=== PATIENT | female | born 1940 | race Caucasian/White ===

== ENCOUNTER 2016-09-20 04:22 | Inpatient (IN) ==
[2016-09-20] MEDS ORDERED: Acetaminophen 325 MG TABLET PO PRN (06:22)
[2016-09-20] MEDS ORDERED: Ondansetron 4 MG/2 ML VIAL IVP PRN (06:22)
[2016-09-20] MEDS ORDERED: Naloxone 0.4 MG/ML INJ IVP PRN (06:22)
[2016-09-20] MEDS ORDERED: Dextrose Gel 15 GM PO PRN ×2 (06:25)
[2016-09-20] MEDS ORDERED: *HR* Dextrose 50 % in Water (Syg) 50 ML SYRINGE IVP PRN (06:25)
[2016-09-20] MEDS ORDERED: D5% in Water 1,000 ML IVC PRN (06:25)
[2016-09-20] MEDS ORDERED: Ipratropium/Albuterol Neb 3 ML IH PRN (06:29)
--- NOTE | 2016-09-20 06:32 | Orthopedic Consult Note ---
Date of Encounter: 09/20/16 Time of Encounter: 06:31 History of Present Illness HPI: Ms. Magana is a 75 year old female Previous ambulator fell on Monday unable to ambulate presents to play tear with the fracture. Physical exam Decreased range of motion left lower extremity Neurovascular intact X-rays intertrochanteric left hip fracture Plan when medically cleared reduction intramedullary nail fixation. Past Med Surg Social Fam HX - Past Medical History Medical history: arthritis, cancer, COPD, dementia, GERD, other Psychiatric history: anxiety - Past Surgical History Surgical History: colectomy, colostomy, orthopedic, other - Social History Smoking Status: Former smoker Smokeless Tobacco Status: No Alcohol use: none Drug use: none Medications and Allergies Divalproex (12 HR) [Depakote (12 HR)] 250 mg PO BID 11/17/14 [History] Docusate [Colace] 100 mg PO BID 11/17/14 [History] Primidone [Mysoline] 50 mg PO BID 11/17/14 [History] Tiotropium [Spiriva] 1 puff IH 0800 11/17/14 [History] Ondansetron ODT [Zofran ODT] 4 mg SL TID PRN 11/18/14 [History] Acetaminophen [Tylenol] 650 mg PO Q4HR PRN 02/05/16 [History] Cranberry Fruit Concentrate [Cranberry] 450 mg PO BID 02/05/16 [History] Divalproex Sodium [Depakote] 125 mg PO HS 02/05/16 [History] Magnesium Hydroxide [Milk of Magnesia] 400 mg PO HS PRN 02/05/16 [History] risperiDONE [Risperidone] 0.5 mg PO DAILY 02/05/16 [History] Lactobacillus Acidophilus [Acidophilus] 1 each PO BID 3 Days 04/25/16 [Rx] ALPRAZolam [Xanax 0.5 MG Tablet] 0.5 mg PO Q6H PRN 09/17/16 [History] ALPRAZolam [Xanax 1 MG Tablet] 1 mg PO HS 09/17/16 [History] Benztropine [Cogentin] 0.5 mg PO HS 09/17/16 [History] Bifidobacterium Infantis [Align] 4 mg PO BID 09/17/16 [History] Fluvoxamine Maleate 50 mg PO DAILY 09/17/16 [History] HYDROcodone/Acet 5/325 mg [[place] 5-325 mg] 1 tab PO DAILY 09/17/16 [History] Psyllium Husk [Metamucil] 0.52 gm PO DAILY 09/17/16 [History] Allergies codeine Allergy (Unknown, Verified 09/17/16 12:55) unknown All Systems Reviewed: A 10-system review of systems was performed and is negative for pertinent findings except as documented above in the HPI. Physical Exam - Constitutional Vitals: Temp Pulse Resp BP Pulse Ox 98.5 F 111 15 115/73 93 09/20/16 05:54 09/20/16 05:54 09/20/16 05:54 09/20/16 05:54 09/20/16 05:54 Results - Labs Labs: All other labs normal.
[2016-09-20] MEDS ORDERED: *HR* HYDROcodone/Acet 5/325 mg TABLET PO PRN (06:41)
[2016-09-20 07:06] LABS: Basophils % 0.3 %; Hemoglobin 9.2 g/dL (11.5-15.4); Immature Granulocytes % 0.3 % (0-4); Lymphocytes # 0.5 K/mcL (0.6-4.6); Lymphocytes % 7.1 %; Mean Corpuscular HGB Conc 31.7 g/dL (31.6-35.5); Mean Corpuscular Hemoglobin 31.3 pg (28.0-33.3); Mean Corpuscular Volume 98.6 fL (83.0-100.0); Mean Platelet Volume 9.9 fL (9.4-12.4); Monocytes # 1.3 K/mcL (0.0-1.3); Monocytes % 16.7 %; Neutrophils # 5.7 K/mcL (1.6-8.9); Platelet Count 107 K/mcL (140-400); Red Blood Count 2.94 M/mcL (3.82-4.97); Red Cell Distribution Width 13.8 % (11.5-14.5); Segmented Neutrophils % 75.6 %
[2016-09-20 07:20] LABS: Alanine Aminotransferase 10 Units/L (0-55); Alkaline Phosphatase 61 Units/L (38-126); Aspartate Amino Transferase 17 Units/L (5-34); BUN/Creatinine Ratio 17 (6-26); Bilirubin,Total 0.3 mg/dL (0.2-1.2); Blood Urea Nitrogen 9 mg/dL (7-20); Calcium 8.9 mg/dL (8.6-10.8); Chloride 85 mEq/L (98-109); Globulin 3.1 g/dL (2.4-3.5); Glucose 99 mg/dL (70-99); Osmolality,Calculated 283 (280-300); Potassium 4.1 mEq/L (3.5-4.5); Sodium 137 mEq/L (136-145); Total Protein 6.1 g/dL (6.0-8.3); eGFR For African Americans > 60 (> 60); eGFR For Non-African Americans > 60 (> 60)
[2016-09-20 07:24] LABS: INR 1.1; Prothrombin Time 11.9 Seconds (9.4-12.1)
[2016-09-20 07:40] LABS: Carbon Dioxide 46 mEq/L (19-29)
--- NOTE | 2016-09-20 08:09 | Internal Med History&Physical ---
Date of Encounter: 09/20/16 Time of Encounter: 08:07 Assessment and Plan (1) Hip fracture, intertrochanteric Current visit: Yes Status: Acute L hip fracture orthopedics review noted Per EMR, patient was a hospice patient and revoked her status at time of presentation in the ER patient with very poor quality of life, I am unsure her quality of life will be impacted positively by surgery If patient's POA agrees with surgeon, may go for surgery as discussed with surgeon and family Patient with no significant cardiac history EKG with sinus tachycardia, no EKG changes There is no further need for any cardiac work up at this time, poor functional capacity at baseline, MET <4, but testing will not influence outcome of surgery She is moderate risk of pulmonary complications due her chronic hypercapnea with compensatory metabolic alkalosis Pain control DVT prophylaxis Rest of management per surgery Qualifiers: Encounter type: initial encounter Fracture type: closed Fracture alignment: nondisplaced Laterality: left Qualified Code(s): S72.145A - Nondisplaced intertrochanteric fracture of left femur, initial encounter for closed fracture (2) UTI (urinary tract infection) Current visit: Yes Status: Acute Urinalysis with positive leukocyte esterase and many bacteria Patient has been started on ceftriaxone Follow Urine culture Qualifiers: Urinary tract infection type: site unspecified Hematuria presence: with hematuria Qualified Code(s): N39.0 - Urinary tract infection, site not specified; R31.9 - Hematuria, unspecified (3) Anemia Current visit: Yes Status: Chronic Chronic. Hemoglobin at baseline. Send type and screen, for repeat hemoglobin after surgery. Qualifiers: Anemia type: unspecified type Qualified Code(s): D64.9 - Anemia, unspecified (4) Colon cancer Current visit: No Status: Chronic Patient with history of colon cancer status post hemicolectomy and colostomy. Continue colostomy care. Qualifiers: Colon location: unspecified part of colon Qualified Code(s): C18.9 - Malignant neoplasm of colon, unspecified (5) Chronic respiratory failure with hypercapnia Current visit: Yes Status: Chronic prior history of chronic respiratory failure, multiple admissions for CO2 narcosis. Patient's respiratory status and his admission since he had baseline. However she has chronic metabolic alkalosis which indicates that she is a chronic retainer. BiPAP at bedside. Patient may require BiPAP immediate postop period (6) Dementia Current visit: Yes Status: Chronic Patient with history of dementia, chronic malnutrition and underweight with BMI of 16. Patient has poor functional capacity/quality of life at baseline, High risk for delirium Ensure orientation and re-orientation Allow family at the bedside as often as possible Continue home antipsychotics Qualifiers: Dementia type: unspecified type Dementia behavioral disturbance: without behavioral disturbance Qualified Code(s): F03.90 - Unspecified dementia without behavioral disturbance Internal Medicine - H&P: HPI Chief complaint: Fall Admitted From: Long-term Nursing Facility Plans for Post Hospital Care: Transfer Long Term Facility History of present illness: Ms. Magana is a 75 year old female with dementia, resident of SNF, chronically debilitated but able to ambulate on walker No family at bedside at time of review information mainly obtained from the chart Patient seen and evaluated at bedside, and upon asking patient why she is in the hospital, patient reports I have been having medication issues She is oriented to person only, and does not remember a history of fall Per chart review, patient had a fall 2 days prior to presentation and history of documented fever 100.9 at SNF, frequency and urgency reported by family members Work up in the ER revealed evidence of UTI and Left intertrochanteric fracture Orthopedics was consulted from referral hospital and recommended admission for surgery Per EMR, patient was known hospice but now full code Patient is not in any form of distress at time of review, tachycardic and tremulous from head to toe, patient reports this is chronic and exacerbated by extremes of emotion or stress. She is cachectic, chest is clear, abdomen with R sided colostomy, no edema. Labs reviewed: chronic anemia, Hb at baseline, metabolic alkalosis, chronic , possibly compensatory to respiratory acidosis/ hypercapnea Past Med Surg Social Fam HX - Past Medical History Medical history: arthritis, cancer, COPD, dementia, GERD, other Psychiatric history: anxiety, depression - Past Surgical History Surgical History: colostomy, orthopedic, other - Social History Smoking Status: Former smoker Smokeless Tobacco Status: No Alcohol use: none Drug use: none - Family History Father Name: FRANCIS CARRILLO Living Status: Age at : 68 Hx Family Cancer: Yes (COLON CA) Mother Name: DANI ISAAC Living Status: Hx Family Cancer: Yes (BREAT CA) Internal Medicine - H&P: Meds Divalproex (12 HR) [Depakote (12 HR)] 250 mg PO BID 11/17/14 [History] Docusate [Colace] 100 mg PO BID 11/17/14 [History] Primidone [Mysoline] 50 mg PO BID 11/17/14 [History] Tiotropium [Spiriva] 1 puff IH 0800 11/17/14 [History] Ondansetron ODT [Zofran ODT] 4 mg SL TID PRN 11/18/14 [History] Acetaminophen [Tylenol] 650 mg PO Q4HR PRN 02/05/16 [History] Cranberry Fruit Concentrate [Cranberry] 450 mg PO BID 02/05/16 [History] Divalproex Sodium [Depakote] 125 mg PO HS 02/05/16 [History] Magnesium Hydroxide [Milk of Magnesia] 400 mg PO HS PRN 02/05/16 [History] risperiDONE [Risperidone] 0.5 mg PO DAILY 02/05/16 [History] Lactobacillus Acidophilus [Acidophilus] 1 each PO BID 3 Days 04/25/16 [Rx] ALPRAZolam [Xanax 0.5 MG Tablet] 0.5 mg PO Q6H PRN 09/17/16 [History] ALPRAZolam [Xanax 1 MG Tablet] 1 mg PO HS 09/17/16 [History] Benztropine [Cogentin] 0.5 mg PO HS 09/17/16 [History] Bifidobacterium Infantis [Align] 4 mg PO BID 09/17/16 [History] Fluvoxamine Maleate 50 mg PO DAILY 09/17/16 [History] HYDROcodone/Acet 5/325 mg [[place] 5-325 mg] 1 tab PO DAILY 09/17/16 [History] Psyllium Husk [Metamucil] 0.52 gm PO DAILY 09/17/16 [History] Allergies codeine Allergy (Unknown, Verified 09/17/16 12:55) unknown ROS unobtainable: due to mental status All Systems PM: A 10-system review of systems was performed and is negative for pertinent findings except as documented above in the HPI. - Constitutional Vitals: Temp Pulse Resp BP Pulse Ox 98.5 F 111 15 115/73 93 09/20/16 05:54 09/20/16 05:54 09/20/16 05:54 09/20/16 05:54 09/20/16 05:54 General appearance: Present: cachectic, A&O X 2, no acute distress (generalized tremors including head bobbing) - Head Head exam: Present: atraumatic - Eye Eye exam: Present: PERRL, conjuntiva pink, sclera anicteric - ENT ENT exam: Present: mucous membranes dry - Neck Neck exam general surgery: Present: normal inspection - Respiratory Respiratory exam: Present: CTAB. Absent: rales, rhonchi, wheezes - Cardiovascular Cardiovascular exam: Present: RRR, +S1, +S2, tachycardia. Absent: diastolic murmur, gallop, rubs, systolic murmur - GI/Abdominal Additional comments: Soft, not tender, R colostomy with colostomy bag slightly filled with fecal material, BS present in all quadrants - Additional comments: [place] cath patent , draining cloudy urine. - Extremities Exam Extremities exam: Present: warm, radial pulses palpable and symetrical. Absent : calf tenderness, cyanotic, pedal edema Additional comments: Generalized wasting noted Left lower leg externally rotated and shorter than the right - Neurological Exam Neurological exam: Present: alert, CN II-XII intact, no focal deficits. Absent : oriented X3, pronater drift, facial droop, speech deficit - Skin Skin exam: Present: dry, intact Internal Med - H&P Results - Labs CBC & Chem 7: 09/20/16 06:57 09/20/16 06:57 Labs: Short CBC 09/20/16 Range/Units 06:57 WBC 7.6 (4.3-11.1) K/mcL Hgb 9.2 L (11.5-15.4) g/dL Hct 29.0 L (35.3-44.9) % Plt Count 107 L (140-400) K/mcL Neutrophils # 5.7 (1.6-8.9) K/mcL BMP 09/20/16 06:57 Sodium 137 Potassium 4.1 Chloride 85 L Carbon Dioxide 46 H* BUN 9 Creatinine 0.52 L Glucose 99 Calcium 8.9 Liver Function 09/20/16 Range/Units 06:57 Total Bilirubin 0.3 (0.2-1.2) mg/dL AST 17 (5-34) Units/L ALT 10 (0-55) Units/L Alkaline Phosphatase 61 (38-126) Units/L Albumin 3.0 L (3.5-5.0) g/dL
[2016-09-20 08:17] LABS: Bilirubin,Urine Negative (Negative); Blood,Urine Moderate (Negative); Clarity,Urine Turbid (Clear); Color,Urine Yellow (Yellow); Glucose,Urine (UA) Normal (Normal); Ketones,Urine Negative (Negative); Leukocyte Esterase,Urine Large (Negative); Nitrite,Urine Negative (Negative); PH,Urine 7.5 pH Units (5.0-8.0); Protein,Urine 30 mg/dL (Neg-Trace); Specific Gravity,Urine 1.012 (1.010-1.025); Urobilinogen,Urine Normal (Normal)
[2016-09-20 08:19] LABS: Bacteria,Urine Many per hpf (None-Few); Squamous Epithelial Cell,Urine Many per lpf (None-Few); WBC,Urine TNTC per hpf (0-3)
[2016-09-20 08:31] LABS: RBC,Urine 15-30 per hpf (0-3)
[2016-09-20] MEDS ORDERED: *HR* HYDROcodone/Acet 5/325 mg TABLET PO SCH (09:00)
[2016-09-20] MEDS ORDERED: risperiDONE 0.25 MG TABLET PO SCH (09:00)
[2016-09-20] MEDS: Divalproex (12 HR) 250 MG TABLET PO SCH ×2 (09:27→19:43)
[2016-09-20] MEDS: FLUVOXAMINE MALEATE 50 MG PO SCH (09:28)
[2016-09-20] MEDS: (Bifidobacterium Infantis [Align] 4 MG) PO SCH ×2 (09:28→19:45)
[2016-09-20] MEDS: 0.9 % Sodium Chloride 1,000 ML IVC SCH (09:28)
[2016-09-20] MEDS: Famotidine 20 MG TABLET PO SCH ×2 (09:28→19:42)
[2016-09-20] MEDS: Tiotropium 18 MCG inhalation IH SCH (10:43)
[2016-09-20 11:15] LABS: ABG Base Excess 25.4 mEq/L (-2.0 to 3.0); ABG HCO3 53.9 mEQ/L (21-27); ABG Oxygen Saturation 91 % (95-98); ABG PO2 60 mmHg (85-104); ABG TCO2 56.6 mEq/L (20-26)
[2016-09-20 11:20] LABS: ABG PCO2 87 mmHg (35-45); Blood Gas Liter Flow 2 L/MIN
[2016-09-20] MEDS: Insulin LISPRO 300 UNITS/3 ML VIAL SQ SCH ×2 (12:25→17:37)
[2016-09-20] MEDS ORDERED: Loratadine 10 MG TABLET PO PRN (17:06)
[2016-09-20] MEDS: ALPRAZolam 0.5 MG TABLET PO PRN (17:35)
[2016-09-20] MEDS: *HR* Heparin 5,000 UNIT/ML VIAL SQ SCH (17:35)
--- NOTE | 2016-09-20 18:20 | Anesthesia Evaluation PreOp ---
Date of Encounter: 09/20/16 - Past History Planned Operation: Left Hip TFN Cardiac History: Denies any Significant Hx Pulmonary History: COPD, Other (chronic respiratory failure with hypercapnea) DRYWALLER History: Other (dementia) Other Medical History: GERD, Other (H/O colon CA S/P colectomy/colostomy) Anesthesia History: Past Anesthesia Alcohol Use: none Drug use: none Medications and Allergies Divalproex (12 HR) [Depakote (12 HR)] 250 mg PO BID 11/17/14 [History] Docusate [Colace] 100 mg PO BID 11/17/14 [History] Primidone [Mysoline] 50 mg PO BID 11/17/14 [History] Tiotropium [Spiriva] 1 puff IH 0800 11/17/14 [History] Ondansetron ODT [Zofran ODT] 4 mg SL QID PRN 11/18/14 [History] Acetaminophen [Tylenol] 650 mg PO Q4HR PRN 02/05/16 [History] Cranberry Fruit Concentrate [Cranberry] 450 mg PO BID 02/05/16 [History] Divalproex Sodium [Depakote] 125 mg PO HS 02/05/16 [History] Magnesium Hydroxide [Milk of Magnesia] 400 mg PO HS PRN 02/05/16 [History] risperiDONE [Risperidone] 1 mg PO BID 02/05/16 [History] ALPRAZolam [Xanax 0.5 MG Tablet] 0.5 mg PO TID PRN 09/17/16 [History] ALPRAZolam [Xanax 1 MG Tablet] 1 mg PO HS 09/17/16 [History] Benztropine [Cogentin] 0.5 mg PO HS 09/17/16 [History] Bifidobacterium Infantis [Align] 4 mg PO BID 09/17/16 [History] Fluvoxamine Maleate 50 mg PO DAILY 09/17/16 [History] HYDROcodone/Acet 5/325 mg [[place] 5-325 mg] 1 tab PO HS 09/17/16 [History] Psyllium Husk [Metamucil] 0.52 gm PO DAILY 09/17/16 [History] Ipratropium/Albuterol Neb [Duoneb] 3 ml IH Q4HR PRN 09/20/16 [History] Levocetirizine Dihydrochloride 5 mg PO DAILY PRN 09/20/16 [History] Omeprazole [PriLOSEC] 20 mg PO DAILY 09/20/16 [History] Tamsulosin [Flomax] 0.4 mg PO DAILY 09/20/16 [History] Allergies codeine Allergy (Unknown, Verified 09/17/16 12:55) unknown - Meds/Allergy Pre-op Review Medications Reviewed: Yes Allergies Reviewed: Yes Beta Blockers on Current Med List: No Anesthesia Results - Labs 09/20/16 06:57 09/20/16 06:57 - Imaging EKG: report reviewed (09/17/2016 ST) Additional studies: 12/19/2009 Stress CONCLUSIONS: ==> Indeterminate ECG for ischemia due to abnormal baseline ECG. ==> The patient demonstrated normal blood pressure response to pharmacologic infusion. ==> The ECG during the exam demonstrated baseline ECG abnormalities. ==> The gated ejection fraction was calculated at 79% ==> The nuclear report will be dictated in a separate report.The nuclear exam reveals no evidence of stress-induced ischemia. Anesthesia Exam Vital Signs/O2 Sat, Most Current Temp Pulse Resp BP Pulse Ox 98.9 F 100 16 112/66 93 09/20/16 15:03 09/20/16 15:03 09/20/16 15:03 09/20/16 15:03 09/20/16 15:03 Height: 5'2''/1.57 m Weight: 92 lbs/41.9 kg
[2016-09-20] MEDS: Divalproex Sodium 125 MG CAPSULE PO SCH (19:43)
[2016-09-20] MEDS: risperiDONE 0.25 MG TABLET PO SCH (19:44)
[2016-09-20] MEDS: ALPRAZolam 1 MG TABLET PO SCH (19:44)
[2016-09-20] MEDS: Primidone 50 MG TABLET PO SCH (19:44)
[2016-09-21] MEDS: Insulin LISPRO 300 UNITS/3 ML VIAL SQ SCH ×5 (00:18→17:43)
[2016-09-21 03:36] LABS: Basophils % 0.2 %; Eosinophils % 0.2 %
[2016-09-21 03:38] LABS: Hemoglobin 9.1 g/dL (11.5-15.4); Immature Granulocytes % 0.2 % (0-4); Immature Platelets 7.2 % (1.1-6.1); Lymphocytes # 0.4 K/mcL (0.6-4.6); Lymphocytes % 6.3 %; Mean Corpuscular HGB Conc 31.4 g/dL (31.6-35.5); Mean Corpuscular Hemoglobin 30.8 pg (28.0-33.3); Mean Corpuscular Volume 98.3 fL (83.0-100.0); Mean Platelet Volume 10.7 fL (9.4-12.4); Monocytes # 0.9 K/mcL (0.0-1.3); Monocytes % 14.6 %; Red Blood Count 2.95 M/mcL (3.82-4.97); Red Cell Distribution Width 13.6 % (11.5-14.5); Segmented Neutrophils % 78.5 %
[2016-09-21 03:51] LABS: BUN/Creatinine Ratio 19 (6-26); Blood Urea Nitrogen 8 mg/dL (7-20); Calcium 8.4 mg/dL (8.6-10.8); Carbon Dioxide 35 mEq/L (19-29); Chloride 90 mEq/L (98-109); Glucose 109 mg/dL (70-99); Osmolality,Calculated 275 (280-300); Sodium 133 mEq/L (136-145); eGFR For African Americans > 60 (> 60); eGFR For Non-African Americans > 60 (> 60)
[2016-09-21 03:53] LABS: Potassium 3.9 mEq/L (3.5-4.5)
[2016-09-21 04:13] LABS: Platelet Count 81 K/mcL (140-400)
[2016-09-21] MEDS: 0.9 % Sodium Chloride 1,000 ML IVC SCH (04:20)
[2016-09-21] MEDS: *HR* Heparin 5,000 UNIT/ML VIAL SQ SCH ×2 (06:05→17:44)
--- NOTE | 2016-09-21 08:47 | Electrocardiograph Report ---
[place] [id number] Test Date: 2016-09-20 Pat Name: Sarah Magana Department: 114 Room: [facility] Gender: F [employer] Sprayer Operator: JJG : 1940 Requested By: Wili Harrison Order Number: [id number] Reading MD: Bill Peterson MD Measurements Intervals [place] Rate: 114 P: 70 NH: 146 QRS: 2 QRSD: 75 T: 79 QT: 288 QTc: 356 Interpretive Statements SINUS TACHYCARDIA Electronically Signed On 09-21-2016 8:45:45 EDT by Bill Peterson MD
[2016-09-21] MEDS: Divalproex (12 HR) 250 MG TABLET PO SCH ×2 (09:30→21:30)
[2016-09-21] MEDS: risperiDONE 0.25 MG TABLET PO SCH ×2 (09:30→21:30)
[2016-09-21] MEDS: Primidone 50 MG TABLET PO SCH ×2 (09:31→21:30)
[2016-09-21] MEDS: FLUVOXAMINE MALEATE 50 MG PO SCH (09:31)
[2016-09-21] MEDS: (Bifidobacterium Infantis [Align] 4 MG) PO SCH ×2 (09:31→21:58)
[2016-09-21] MEDS: Famotidine 20 MG TABLET PO SCH ×2 (09:31→21:30)
--- NOTE | 2016-09-21 10:05 | Palliative - Consult Note ---
Date of Encounter: 09/21/16 Time of Encounter: 09:20 - Assessment and Plan (1) Hip fracture Current Visit: Yes Status: Acute Assessment and plan: Per staff at [facility], (I am unable to reach the patient's family after repeated attempts at both contacts) The family has decided not to proceed with hip fracture repair due to the potential risks to the patient. Return to [facility] with comfort care only. Qualifiers: Encounter type: initial encounter Fracture type: closed Laterality: left Qualified Code(s): S72.002A - Fracture of unspecified part of neck of left femur, initial encounter for closed fracture (2) Goals of care, counseling/discussion Current Visit: Yes Status: Acute Assessment and plan: As I am unable to reach the patient's family either daughter, recommend that the CODE STATUS remains full. I am unclear why the CODE STATUS got changed, unless it was with the anticipation of surgery which has now been decided against. Per the medical record from [facility], there had been a new DNR CC signed [id number]. If the intent of the changing CODE STATUS to full was for surgery I would believe that the previously known intent of the comfort care CODE STATUS would be in effect. I recommend that the patient he discharged as per the hospitalist team back to [facility] and the family can rediscuss CODE STATUS at that time. Per the case management social worker or Mehdi Llanos, the family is very unhappy with [facility] hospice and does not wish to consider turn to that. If they decide at some point time they do wish to have hospice services [facility] also services [facility]. Given their desire for comfort care only and this past history of colon cancer which I do not have any further street on. I would believe the patient would be appropriate for hospice. Given the fact the patient was able to walk up until a couple of days ago, fact that she is able to bring words together I do not believe she meets criteria based on dementia. Since I cannot reach the family, and per the case management social worker the family is already okay with an anticipating return of the patient to [place] to [facility] I have recommended to the hospitalist to charge if they feel that is appropriate oral antibiotics for UTI left the family decide on CODE STATUS after they return to the nursing center. (3) UTI (urinary tract infection) Current Visit: Yes Status: Acute Assessment and plan: Treat with oral antibiotics return to [facility]. Qualifiers: Urinary tract infection type: site unspecified Hematuria presence: with hematuria Qualified Code(s): N39.0 - Urinary tract infection, site not specified; R31.9 - Hematuria, unspecified (4) Colon cancer Current Visit: No Status: Chronic Assessment and plan: Past history, I presume that this is the diagnosis that was used for hospice. Patient and family have revoked hospice at this time. A wish to reinstate hospice but do not wish to use [facility] is available at [facility]. Qualifiers: Colon location: unspecified part of colon Qualified Code(s): C18.9 - Malignant neoplasm of colon, unspecified Palliative-CN HPI - Data of Consult Patient: new to practice Requesting Physician: Marco Munroe MD Primary Care Provider: PCP NO - Consult Narrative Palliative Care/Comfort Measures: Palliative care Reason for consult: goals of care , code status History of present illness: Ms. Magana is a 75 year old female Is very pleasant but also demented. There is no family available, therefore the history is taken from the medical record. Patient resides at [facility] and has been under the care of [facility] several months. Patient fell approximately 2 days prior to admission out, 3 days ago patient was able to get around with a walker but was noticing having a great deal of pain her left leg. The patient was also having burning and frequency of urination. With a very small amounts of urine out. The patient also had a fever at the [facility]. She was taken to the [place] emergency department on and have a urinary tract infection as well as an intertrochanteric right hip fracture patient was then sent to [facility] for her trochanteric fracture on the left-hand side. Upon discussion with the case management social worker, he reveals that after the family was told the risks and fits of surgery that they opted not to have surgery done. As the patient had recently had a DNR comfort care augmentation done per the emergency department at [place], this had just been signed by her PCP on [id number]. It had been made a full code for transferred here. Palliative care was consulted regarding goals of care possibility of hospice as well as status. Please see the assessment and plan. At this time the patient is very pleasantly demented and has no complaints of. CC: Marco Munroe MD hip pain Past Med Surg Social Fam HX - Past Medical History Medical history: arthritis, cancer, COPD, dementia, GERD, other Psychiatric history: anxiety, depression - Past Surgical History Surgical History: colostomy, orthopedic, other - Social History Smoking Status: Former smoker Smokeless Tobacco Status: No Alcohol use: none Drug use: none - Family History Father Name: FRANCIS CARRILLO Living Status: Age at : 68 Hx Family Cancer: Yes (COLON CA) Mother Name: DANI ISAAC Living Status: Hx Family Cancer: Yes (BREAT CA) Medications and Allergies Divalproex (12 HR) [Depakote (12 HR)] 250 mg PO BID 11/17/14 [History] Docusate [Colace] 100 mg PO BID 11/17/14 [History] Primidone [Mysoline] 50 mg PO BID 11/17/14 [History] Tiotropium [Spiriva] 1 puff IH 0800 11/17/14 [History] Ondansetron ODT [Zofran ODT] 4 mg SL QID PRN 11/18/14 [History] Acetaminophen [Tylenol] 650 mg PO Q4HR PRN 02/05/16 [History] Cranberry Fruit Concentrate [Cranberry] 450 mg PO BID 02/05/16 [History] Divalproex Sodium [Depakote] 125 mg PO HS 02/05/16 [History] Magnesium Hydroxide [Milk of Magnesia] 400 mg PO HS PRN 02/05/16 [History] risperiDONE [Risperidone] 1 mg PO BID 02/05/16 [History] ALPRAZolam [Xanax 0.5 MG Tablet] 0.5 mg PO TID PRN 09/17/16 [History] ALPRAZolam [Xanax 1 MG Tablet] 1 mg PO HS 09/17/16 [History] Benztropine [Cogentin] 0.5 mg PO HS 09/17/16 [History] Bifidobacterium Infantis [Align] 4 mg PO BID 09/17/16 [History] Fluvoxamine Maleate 50 mg PO DAILY 09/17/16 [History] HYDROcodone/Acet 5/325 mg [[place] 5-325 mg] 1 tab PO HS 09/17/16 [History] Psyllium Husk [Metamucil] 0.52 gm PO DAILY 09/17/16 [History] Ipratropium/Albuterol Neb [Duoneb] 3 ml IH Q4HR PRN 09/20/16 [History] Levocetirizine Dihydrochloride 5 mg PO DAILY PRN 09/20/16 [History] Omeprazole [PriLOSEC] 20 mg PO DAILY 09/20/16 [History] Tamsulosin [Flomax] 0.4 mg PO DAILY 09/20/16 [History] Allergies codeine Allergy (Unknown, Verified 09/17/16 12:55) unknown ROS unobtainable: due to mental status Palliative Care-Exam - Constitutional Vitals: Temp Pulse Resp BP Pulse Ox 98.2 F 93 16 109/74 95 09/21/16 06:37 09/21/16 06:37 09/21/16 06:37 09/21/16 06:37 09/21/16 06:37 General appearance: Present: no acute distress - Head Head Exam: Present: atraumatic, normal inspection - Eye Eye exam: Present: EOMI, normal appearance - ENT ENT exam: Present: mucous membranes moist - Neck Neck exam: Present: full ROM - Respiratory Respiratory exam: Present: CTAB - Cardiovascular Cardiovascular exam: Present: RRR - GI/Abdominal Exam GI/Abdominal exam: Present: normal bowel sounds, soft. Absent: tenderness - Catheter Type: Urethral ([place]) - Neurological Exam Neurological exam: Present: alert. Absent: oriented X3 (Able to speak, but is completely disoriented.) - Psychiatric Psychiatric exam: Absent: agitated, anxious - Skin Skin exam: Present: dry, warm Internal Medicine - CN: Reslt - Labs CBC & Chem 7: 09/21/16 03:29 09/21/16 03:29 Labs: Short CBC 09/21/16 Range/Units 03:29 WBC 6.4 (4.3-11.1) K/mcL Hgb 9.1 L (11.5-15.4) g/dL Hct 29.0 L (35.3-44.9) % Plt Count 81 L (140-400) K/mcL Neutrophils # 5.0 (1.6-8.9) K/mcL BMP 09/21/16 03:29 Sodium 133 L Potassium 3.9 Chloride 90 L Carbon Dioxide 35 H BUN 8 Creatinine 0.42 L Glucose 109 H Calcium 8.4 L - ABG Interpretation ABG results: ABG ABG pH 7.40 pH Units (7.32-7.45) 09/20/16 10:41 ABG pCO2 87 mmHg (35-45) H* 09/20/16 10:41 ABG pO2 60 mmHg (85-104) L 09/20/16 10:41 ABG O2 Saturation 91 % (95-98) L 09/20/16 10:41 PT/INR, D-dimer PT 11.9 Seconds (9.4-12.1) 09/20/16 06:57 Consult Discharge Plan - Plan Referrals: NO,PCP [Primary Care Provider] - Palliative Quality Palliative Quality: Screen for Code Status: Yes, Screen for Goals of Care: Yes, Screen for Pain: Yes, If Pain Regimen Started, Initiate Bowel Regimen: Yes, Screen for Nausea/Vomitting: Yes Code Status: 09/20/16 06:22 Resuscitation Status: Active [RES] Routine Comment: Resuscitation Status: Full Code
[2016-09-21] MEDS: Tiotropium 18 MCG inhalation IH SCH (10:11)
[2016-09-21] MEDS ORDERED: *HR* Morphine 2 MG/ML SYRINGE IVP PRN (14:28)
--- NOTE | 2016-09-21 14:28 | Event Note ---
Date of Encounter: 09/21/16 Time of Encounter: 14:25 Agent's daughter Ms. Cr, who I had tried to contact earlier came in. She was able to confirm for me the family's wishes that the patient should be DNR CCA DNI. Status had been changed originally for the possibility of surgery but surgery has been decided against and therefore they would like to have resuscitate status return to the patient. I have made her DNR CCA DNI to avoid any confusion with DNR comfort care only in that the family absolutely does not wish to have hospice. Urine culture is not yet back, the plan of care is for return to [facility] status has been changed in the computer, state forms have been regenerated. At this point palliative will sign off please reconsult if we can help in any way.
[2016-09-21] MEDS: ALPRAZolam 0.5 MG TABLET PO PRN (16:03)
--- NOTE | 2016-09-21 18:56 | Internal Med Progress Note ---
Date of Encounter: 09/21/16 Time of Encounter: 11:00 - Assessment and plan (1) UTI (urinary tract infection) Current Visit: No Status: Acute Assessment and plan: Upon review of her prior visits in our medical records, she has multiple visits with positive urinalysis and several cultures positive for multidrug resistant bacteria. We will treat her empirically with broad-spectrum IV antibiotics and follow up culture and sensitivity in the morning. Qualifiers: Urinary tract infection type: site unspecified Hematuria presence: without hematuria Qualified Code(s): N39.0 - Urinary tract infection, site not specified (2) Chronic respiratory failure with hypercapnia Current Visit: Yes Status: Chronic Assessment and plan: Continue with oxygen by nasal cannula to maintain saturation above 90%. BiPAP as needed for comfort or shortness of breath. (3) Dementia Current Visit: Yes Status: Chronic Assessment and plan: She has advanced dementia and poor prognosis. She has very poor functional status. She was currently on hospice, family fired hospice. We will promote frequent reorientation, avoid psychotropic medication. Delirium precautions. Qualifiers: Dementia type: unspecified type Dementia behavioral disturbance: without behavioral disturbance Qualified Code(s): F03.90 - Unspecified dementia without behavioral disturbance (4) Hip fracture Current Visit: Yes Status: Acute Assessment and plan: Patient's family refused surgery due to high risk. She has very poor functional status and surgical repair would be a major risk without significant benefit. Surgical repair has been canceled. We appreciate orthopedic surgery recommendations. Pain control with oral [place] and IV morphine. She is at high risk for morbidity mortality and complications due to poor mental status and IV opiates. Qualifiers: Encounter type: initial encounter Fracture type: closed Laterality: left Qualified Code(s): S72.002A - Fracture of unspecified part of neck of left femur, initial encounter for closed fracture (5) Goals of care, counseling/discussion Current Visit: Yes Status: Acute Assessment and plan: Patient is to remind DNR/DNI. Patient has very poor prognosis due to advanced dementia. Continue treatment for complicated recurrent UTI and plan for discharge back to the correction in 1-2 days. (6) DVT prophylaxis Current Visit: Yes Status: Acute Assessment and plan: Subcutaneous heparin. - Subjective Interval history: 09/21/2016: The patient cannot provide any history due to advanced dementia. Family present at the bedside reports that the patient had suffered a fall and she was sent to the hospital 2 days later. She was found to have a hip fracture. The patient's family confirms that patient has a valid currently standing DNR order. - Constitutional Vitals: Temp Pulse Resp BP Pulse Ox 98.7 F 114 16 144/75 95 09/21/16 16:25 09/21/16 16:25 09/21/16 16:25 09/21/16 16:25 09/21/16 16:25 General appearance: Present: cachectic, A&O X 1, no acute distress (generalized tremors including head bobbing) - Respiratory Respiratory exam: Present: CTAB. Absent: accessory muscle use, rales, rhonchi, wheezes - Cardiovascular Cardiovascular exam: Present: RRR, +S1, +S2. Absent: diastolic murmur, gallop, rubs, systolic murmur - GI/Abdominal GI/Abdominal exam: Present: normal bowel sounds, soft, no peritoneal signs. Absent: distended, tenderness - Extremities Exam Extremities exam: Present: warm, radial pulses palpable and symetrical. Absent : calf tenderness, cyanotic, pedal edema Internal Medicine: Result - Labs CBC & Chem 7: 09/21/16 03:29 09/21/16 03:29 Labs: Short CBC 09/21/16 Range/Units 03:29 WBC 6.4 (4.3-11.1) K/mcL Hgb 9.1 L (11.5-15.4) g/dL Hct 29.0 L (35.3-44.9) % Plt Count 81 L (140-400) K/mcL Neutrophils # 5.0 (1.6-8.9) K/mcL BMP 09/21/16 03:29 Sodium 133 L Potassium 3.9 Chloride 90 L Carbon Dioxide 35 H BUN 8 Creatinine 0.42 L Glucose 109 H Calcium 8.4 L - ABG Interpretation ABG results: ABG ABG pH 7.40 pH Units (7.32-7.45) 09/20/16 10:41 ABG pCO2 87 mmHg (35-45) H* 09/20/16 10:41 ABG pO2 60 mmHg (85-104) L 09/20/16 10:41 ABG O2 Saturation 91 % (95-98) L 09/20/16 10:41 PT/INR, D-dimer PT 11.9 Seconds (9.4-12.1) 09/20/16 06:57 Consult Discharge Plan - Plan Referrals: NO,PCP [Primary Care Provider] -
[2016-09-21] MEDS: Divalproex Sodium 125 MG CAPSULE PO SCH (21:30)
[2016-09-21] MEDS: ALPRAZolam 1 MG TABLET PO SCH (21:57)
[2016-09-22] MEDS: 0.9 % Sodium Chloride 1,000 ML IVC SCH (01:41)
[2016-09-22] MEDS: *HR* Heparin 5,000 UNIT/ML VIAL SQ SCH (06:15)
[2016-09-22] MEDS: Tiotropium 18 MCG inhalation IH SCH (08:01)
[2016-09-22 08:30] VITALS: BP 105/69
[2016-09-22] MEDS: Insulin LISPRO 300 UNITS/3 ML VIAL SQ SCH ×2 (09:32→12:22)
[2016-09-22] MEDS: FLUVOXAMINE MALEATE 50 MG PO SCH (09:32)
[2016-09-22] MEDS: (Bifidobacterium Infantis [Align] 4 MG) PO SCH (09:36)
[2016-09-22] MEDS: Divalproex (12 HR) 250 MG TABLET PO SCH (09:38)
[2016-09-22] MEDS: Primidone 50 MG TABLET PO SCH (09:38)
[2016-09-22] MEDS: risperiDONE 0.25 MG TABLET PO SCH (09:38)
[2016-09-22] MEDS: Famotidine 20 MG TABLET PO SCH (09:38)
--- NOTE | 2016-09-22 10:40 | Discharge Summary ---
Date of Encounter: 09/22/16 Time of Encounter: 10:35 - Discharge Diagnosis (1) UTI (urinary tract infection) Priority: Secondary Status: Acute Qualifiers: Urinary tract infection type: site unspecified Hematuria presence: without hematuria Qualified Code(s): N39.0 - Urinary tract infection, site not specified (2) Chronic respiratory failure with hypercapnia Priority: Secondary Status: Chronic (3) Dementia Priority: Secondary Status: Chronic Qualifiers: Dementia type: unspecified type Dementia behavioral disturbance: without behavioral disturbance Qualified Code(s): F03.90 - Unspecified dementia without behavioral disturbance (4) Hip fracture Priority: Primary Status: Acute Qualifiers: Encounter type: initial encounter Fracture type: closed Laterality: left Qualified Code(s): S72.002A - Fracture of unspecified part of neck of left femur, initial encounter for closed fracture (5) Goals of care, counseling/discussion Priority: Secondary Status: Acute - Discharge Medications Prescriptions: Morphine Immed Rel [Morphine Sulfate] 15 mg PO Q4HR PRN #30 tab PRN Reason: Severe pain ALPRAZolam [Xanax 0.5 MG Tablet] 0.5 mg PO TID PRN #30 tablet PRN Reason: Anxiety ALPRAZolam [Xanax 1 MG Tablet] 1 mg PO HS #30 tablet Aspirin Enteric Coated [Aspirin EC] 325 mg PO DAILY #30 tablet. HYDROcodone/Acet 5/325 mg [[place] 5-325 mg] 1 tab PO HS #30 tablet Nitrofurantoin (BID) [Macrobid] 100 mg PO BID #7 capsule Home Medications: Divalproex (12 HR) [Depakote (12 HR)] 250 mg PO BID 11/17/14 [History] Docusate [Colace] 100 mg PO BID 11/17/14 [History] Primidone [Mysoline] 50 mg PO BID 11/17/14 [History] Tiotropium [Spiriva] 1 puff IH 0800 11/17/14 [History] Ondansetron ODT [Zofran ODT] 4 mg SL QID PRN 11/18/14 [History] Acetaminophen [Tylenol] 650 mg PO Q4HR PRN 02/05/16 [History] Cranberry Fruit Concentrate [Cranberry] 450 mg PO BID 02/05/16 [History] Divalproex Sodium [Depakote] 125 mg PO HS 02/05/16 [History] Magnesium Hydroxide [Milk of Magnesia] 400 mg PO HS PRN 02/05/16 [History] risperiDONE [Risperidone] 1 mg PO BID 02/05/16 [History] Benztropine [Cogentin] 0.5 mg PO HS 09/17/16 [History] Bifidobacterium Infantis [Align] 4 mg PO BID 09/17/16 [History] Fluvoxamine Maleate 50 mg PO DAILY 09/17/16 [History] Psyllium Husk [Metamucil] 0.52 gm PO DAILY 09/17/16 [History] Ipratropium/Albuterol Neb [Duoneb] 3 ml IH Q4HR PRN 09/20/16 [History] Levocetirizine Dihydrochloride 5 mg PO DAILY PRN 09/20/16 [History] Omeprazole [PriLOSEC] 20 mg PO DAILY 09/20/16 [History] Tamsulosin [Flomax] 0.4 mg PO DAILY 09/20/16 [History] ALPRAZolam [Xanax 0.5 MG Tablet] 0.5 mg PO TID PRN #30 tablet 09/22/16 [Rx] ALPRAZolam [Xanax 1 MG Tablet] 1 mg PO HS #30 tablet 09/22/16 [Rx] Aspirin Enteric Coated [Aspirin EC] 325 mg PO DAILY #30 tablet. 09/22/16 [Rx] HYDROcodone/Acet 5/325 mg [[place] 5-325 mg] 1 tab PO HS #30 tablet 09/22/16 [Rx] Morphine Immed Rel [Morphine Sulfate] 15 mg PO Q4HR PRN #30 tab 09/22/16 [Rx] Nitrofurantoin (BID) [Macrobid] 100 mg PO BID #7 capsule 09/22/16 [Rx] Allergies/Adverse Reactions: Allergies codeine Allergy (Unknown, Verified 09/17/16 12:55) unknown Procedures/tests Complete & Pending: Procedures Performed prior 72 hours Category Date Time Status ECG 12 lead ECG [ECG] Routine Y 09/20/16 06:22 Completed Date of admission: 09/20/16 06:36 Primary care physician: PCP NO Consults: 09/20/16 06:24 Consult to Physical Therapy [CONS] Routine Comment: Evaluate, develop and implement POC Reason for Consult: pt eval Consult to Programmer [CONS] Routine Reason for SW Consult: d/c planning 09/20/16 06:26 Consult to Orthopedic Surgery [CONS] Routine Consulting Provider: [facility] Reason for Consult: left hip fracture Call Completed: Yes 09/21/16 09:22 Consult to Palliative Care [CONS] Routine Comment: Consulting Provider: Ivanna Pryor Reason for Consult: goals of care, previously on hospice Time Notified: 09:23 Call Completed: Yes - Patient Status Disposition: Transfer SNF Condition: Fair Functional capacity at discharge: bed bound Overall status at discharge: patient is not back to baseline - Discharge Instructions Follow Up With: NO,PCP [Primary Care Provider] - - Diet and Activity Activity: increase activity as tolerated, other (Bedrest) Diet: advance to your usual diet Hospital course: Ms. Magana is a 75 year old female with past medical history of dementia, chronic debilitation, COPD and chronic hypoxic respiratory failure, recurrent UTIs, [facility] who was brought to the hospital after she had suffered a fall which resulted in a left hip fracture. She was previously enrolled in hospice. The family decided to further hospice and have the patient evaluation done in the hospital. She was diagnosed with an acute intertrochanteric left hip fracture. Orthopedic service was consulted. The plan was to repair the fracture. Upon further discussion with the family they refused surgery due to the patient's poor functional status as well as high risk for surgery. She was treated conservatively with [place] and IV morphine for pain and DVT prophylaxis with heparin. She was also diagnosed with a urinary tract infection for which she was treated with IV antibiotics. Today she will be switched to oral antibiotics and oral morphine for pain. [facility] Given her high fall risk DVT prophylaxis will be accomplished with aspirin daily, heparin is considered to carry a higher risk of bleeding and therefore will be discontinued. Patient appears to be back to baseline, tolerated a diet and currently is not complaining of any pain. - Time Spent with Patient Total time spent providing and/or coordinating discharge services: Greater than 30 minutes - Constitutional Vitals: Temp Pulse Resp BP Pulse Ox 98.3 F 98 16 105/69 94 09/22/16 08:16 09/22/16 08:16 09/22/16 08:16 09/22/16 08:16 09/22/16 08:16 General appearance: Present: cachectic, A&O X 1, no acute distress (generalized tremors including head bobbing) - Respiratory Respiratory exam: Present: decreased breath sounds, CTAB. Absent: accessory muscle use, rales, rhonchi, wheezes - Cardiovascular Cardiovascular exam: Present: RRR, +S1, +S2. Absent: diastolic murmur, gallop, rubs, systolic murmur - GI/Abdominal GI/Abdominal exam: Present: normal bowel sounds, soft, no peritoneal signs. Absent: distended, tenderness Additional comments: Colostomy bag is noted containing fecal matter.
--- NOTE | 2016-09-22 10:53 | Physician Discharge Referral ---
ExtendedCare Referral Info Provider in Charge after Transfer: PCP Institutional Level of Care: Skilled - Diagnosis (1) UTI (urinary tract infection) Status: Acute (2) Chronic respiratory failure with hypercapnia Status: Chronic (3) Dementia Status: Chronic (4) Hip fracture Status: Acute (5) Goals of care, counseling/discussion Status: Acute - Transfer Medications Prescriptions: Morphine Immed Rel [Morphine Sulfate] 15 mg PO Q4HR PRN #30 tab PRN Reason: Severe pain ALPRAZolam [Xanax 0.5 MG Tablet] 0.5 mg PO TID PRN #30 tablet PRN Reason: Anxiety ALPRAZolam [Xanax 1 MG Tablet] 1 mg PO HS #30 tablet Aspirin Enteric Coated [Aspirin EC] 325 mg PO DAILY #30 tablet. HYDROcodone/Acet 5/325 mg [[place] 5-325 mg] 1 tab PO HS #30 tablet Nitrofurantoin (BID) [Macrobid] 100 mg PO BID #7 capsule Home Medications: Divalproex (12 HR) [Depakote (12 HR)] 250 mg PO BID 11/17/14 [History] Docusate [Colace] 100 mg PO BID 11/17/14 [History] Primidone [Mysoline] 50 mg PO BID 11/17/14 [History] Tiotropium [Spiriva] 1 puff IH 0800 11/17/14 [History] Ondansetron ODT [Zofran ODT] 4 mg SL QID PRN 11/18/14 [History] Acetaminophen [Tylenol] 650 mg PO Q4HR PRN 02/05/16 [History] Cranberry Fruit Concentrate [Cranberry] 450 mg PO BID 02/05/16 [History] Divalproex Sodium [Depakote] 125 mg PO HS 02/05/16 [History] Magnesium Hydroxide [Milk of Magnesia] 400 mg PO HS PRN 02/05/16 [History] risperiDONE [Risperidone] 1 mg PO BID 02/05/16 [History] Benztropine [Cogentin] 0.5 mg PO HS 09/17/16 [History] Bifidobacterium Infantis [Align] 4 mg PO BID 09/17/16 [History] Fluvoxamine Maleate 50 mg PO DAILY 09/17/16 [History] Psyllium Husk [Metamucil] 0.52 gm PO DAILY 09/17/16 [History] Ipratropium/Albuterol Neb [Duoneb] 3 ml IH Q4HR PRN 09/20/16 [History] Levocetirizine Dihydrochloride 5 mg PO DAILY PRN 09/20/16 [History] Omeprazole [PriLOSEC] 20 mg PO DAILY 09/20/16 [History] Tamsulosin [Flomax] 0.4 mg PO DAILY 09/20/16 [History] ALPRAZolam [Xanax 0.5 MG Tablet] 0.5 mg PO TID PRN #30 tablet 09/22/16 [Rx] ALPRAZolam [Xanax 1 MG Tablet] 1 mg PO HS #30 tablet 09/22/16 [Rx] Aspirin Enteric Coated [Aspirin EC] 325 mg PO DAILY #30 tablet. 09/22/16 [Rx] HYDROcodone/Acet 5/325 mg [[place] 5-325 mg] 1 tab PO HS #30 tablet 09/22/16 [Rx] Morphine Immed Rel [Morphine Sulfate] 15 mg PO Q4HR PRN #30 tab 09/22/16 [Rx] Nitrofurantoin (BID) [Macrobid] 100 mg PO BID #7 capsule 09/22/16 [Rx] Allergies/Adverse Reactions: Allergies codeine Allergy (Unknown, Verified 09/17/16 12:55) unknown - Respiratory Orders Smoking Cessation: Smoking cessation has been advised. For more information, call the [place] Tobacco Quit Line at 5-193-ODZM-NOW. - Advance Directives Living Will: Yes Power of Manager Relationship: Yes Code Status: DNR-Arrest/Don't Intubate - Mobility Orders Bedrest - Rehabiliation Orders Rehab Potential: Fair Rehab Orders: Evaluation for Physical Therapy, Evaluation for Occupational Therapy - Diet Orders Mechanical Soft CERTIFICATION: I certify that the transfer of the above named patient to an Extended Care Facility is necessary for the continuing treatment of the diagnosis listed. The above information is true and accurate reflection of patient's current condition. Confidential - Redisclosure prohibited without a patient's written consent.
== END 2016-09-22 13:19 | DRG 536 ==
LOC: 3NENU → SUATTDRO 06:36 → 2ANU 09-21 13:39
PROVIDERS: ADMIT Internal Medicine; ATTEND Internal Medicine